=== PATIENT | female | born 1990 | race Caucasian/White ===

== ENCOUNTER 2019-09-19 11:35 | Outpatient (REF) | payer OTHER, SELFPAY ==
--- NOTE | 2019-09-19 11:00 | PAPFT_PTH ---
PATIENT: Daly Marie LOC: [facility] U#:[id number] AGE/SX: 28/F ROOM: RE09/19/[address]: OKSANA Jain : 1990 BED: DIS: 09/19/2019 SPEC #: [id number] RECD: 09/19/19 12:42 STATUS: YOSVANY REQ #: [id number] EWA: 09/19/19 11:[address]: Nhung Boone DEPT: [facility] Cytology RECD BY: Karina Boykin ENTERED: 09/19/19 12:43 SP TYPE: PAPFT KEVAN DR: Unknown,Unknown Tissues: 1 - CX/ENDOCX FOR PAP SMEARS Procedures: PAP THIN PREP/UVM Screening Comments: [id number]
== END 2019-09-19 11:55 ==
LOC: LBN 11:35
PROVIDERS: Visit Provider Nurse Practitioner Family
DX: Z12.4 Encounter for screening for malignant neoplasm of cervix (principal)
CPT/HCPCS: 88142

== ENCOUNTER 2020-11-28 21:02 | Outpatient (REF) | payer BC, SELFPAY ==
[2020-11-28 21:37] LABS: TSH (W/Ref FT4) 0.79 uIU/mL (0.36-3.74)
== END 2020-11-28 21:22 ==
LOC: NCHCN 21:02
PROVIDERS: Visit Provider Nurse Practitioner Family
DX: E66.3 Overweight (principal)
CPT/HCPCS: 84443

== ENCOUNTER 2021-12-12 15:43 | Outpatient (REF) | payer BC, SELFPAY ==
[2021-12-12 21:10] LABS: HCT 41.2 % (36.0-46.0); HGB 13.3 g/dL (11.2-15.7); MCH 28.4 pg (27.0-33.0); MCHC 32.3 % (32.0-36.0); Platelet Count 227 10^3/uL (130-400); RBC 4.68 10^6/uL (3.93-5.22); RDW 12.3 % (11.7-14.6); RDW-SD 39.9 fL; WBC 8.61 10^3/uL (4.4-10.8)
[2021-12-12 21:30] LABS: Anion Gap 9.2 mmol/L (3-11); BUN 16 mg/dL (7-18); CO2 27.8 mmol/L (21.0-32.0); CREATININE 0.7 mg/dL (0.55-1.02); Calcium 9.4 mg/dL (8.5-10.1); Chloride 104 mmol/L (98-107); Glucose 84 mg/dL (74-106); Potassium 3.9 mmol/L (3.5-5.1); Sodium 141 mmol/L (136-145); TSH (W/Ref FT4) 0.58 uIU/mL (0.36-3.74)
[2021-12-12 21:42] LABS: Iron 71 ug/dL (50-170); Total Iron Binding Capacity 318 ug/dL (250-450); Transferrin Sat 22 % (15-50)
== END 2021-12-12 15:44 | disposition home or self-care (01) ==
LOC: NCHCN 15:43
PROVIDERS: PCP Nurse Practitioner Family; Visit Provider Nurse Practitioner Family
DX: Z00.00 Encounter for general adult medical examination without abnormal findings (principal); R00.2 Palpitations
CPT/HCPCS: 80048; 85027; 83540; 83550; 84443

== ENCOUNTER 2021-12-15 13:39 | Outpatient (RCR) | payer BC, SELFPAY ==
--- NOTE | 2021-12-15 16:30 | HOLTER_ITS ---
APPROVED REPORT Conclusion This is a 48-hour Holter monitor, ordered for palpitations Predominant rhythm was sinus. Average heart rate was 79. Minimum was 55, maximum 151 There were no ventricular dysrhythmias A total of 6 isolated premature atrial contractions were recorded There was no atrial fibrillation, no high-grade AV block, no pauses greater than 3 seconds No patient symptoms were reported
== END 2022-01-05 23:59 | disposition home or self-care (01) ==
LOC: RT 13:39
PROVIDERS: PCP Nurse Practitioner Family; Visit Provider Nurse Practitioner Family
DX: R00.2 Palpitations (principal)
CPT/HCPCS: 93270; 93225; 93226

== ENCOUNTER 2022-01-22 17:49 | Outpatient (REF) | payer BC, SELFPAY ==
[2022-01-22 21:49] LABS: FREE T4 1.01 ng/dL (0.76-1.46)
[2022-01-23 17:53] LABS: T3,Free 4.1 pg/mL (2.8-5.3)
== END 2022-01-22 17:50 | disposition home or self-care (01) ==
LOC: NCHCN 17:49
PROVIDERS: PCP Nurse Practitioner Family; Visit Provider Nurse Practitioner Family
DX: F32.9 Major depressive disorder, single episode, unspecified (principal)
CPT/HCPCS: 84439; 84481

== ENCOUNTER 2023-01-30 13:26 | Outpatient (REF) | payer OTHER, SELFPAY ==
[2023-01-31 22:32] LABS: COVID-19 RT-PCR UVMMC Result Negative (Negative)
== END 2023-01-30 13:27 | disposition home or self-care (01) ==
LOC: LBN 13:26
PROVIDERS: PCP Nurse Practitioner Family; Visit Provider Physician Assistant Medical
DX: J02.9 Acute pharyngitis, unspecified (principal); Z20.822 Contact with and (suspected) exposure to COVID-19
CPT/HCPCS: U0003; 87070

== ENCOUNTER 2023-04-06 14:00 | Outpatient (REF) | payer OTHER, SELFPAY ==
--- NOTE | 2023-04-06 12:30 | PAPFT_PTH ---
PATIENT: Daly Marie LOC: [facility]#:[id number] AGE/SX: 32/F ROOM: RE04/06/[address]: Rebecca Negrete : 1990 BED: DIS: 04/06/2023 SPEC #: [id number] RECD: 04/06/23 17:11 STATUS: YOSVANY RECely #: [id number] EWA: 04/06/23 12:[address]: Rebecca Negrete DEPT: [facility] Cytology RECD BY: Karina Boykin Tissues: 1 - CX/ENDOCX FOR PAP SMEARS Procedures: PAP THIN PREP/UVM Screening HPV DNA PROBE Comments: [id number]
[2023-04-06 22:06] LABS: HCT 41.2 % (36.0-46.0); HGB 13.4 g/dL (11.2-15.7); MCH 28.7 pg (27.0-33.0); MCHC 32.5 % (32.0-36.0); MCV 88 fL (80-95); MPV 11.6 fL (8.0-11.0); Platelet Count 239 10^3/uL (130-400); RBC 4.67 10^6/uL (3.93-5.22); RDW 13.2 % (11.7-14.6); RDW-SD 42.9 fL; WBC 7.36 10^3/uL (4.4-10.8)
[2023-04-07 00:03] LABS: ALT 27 U/L (14-59); AST 24 U/L (15-37); Albumin 4.4 g/dL (3.4-5.0); Alkaline Phosphatase 118 U/L (46-116); BUN 13 mg/dL (7-18); Bilirubin, Total 0.2 mg/dL (0.2-1.0); CREATININE 0.9 mg/dL (0.55-1.02); Calcium 8.9 mg/dL (8.5-10.1); Calculated LDL 110 mg/dL (<100); Chloride 107 mmol/L (98-107); Cholesterol 188 mg/dL (<200); Estimated GFR 86.57 (mL/min/1.73m2); Glucose 90 mg/dL (74-106); HDL Cholesterol 72 mg/dL (40-60); Potassium 4.2 mmol/L (3.5-5.1); Sodium 144 mmol/L (136-145); Total Protein 7.8 g/dL (6.4-8.2); Triglyceride 31 mg/dL (<150)
== END 2023-04-06 14:01 | disposition home or self-care (01) ==
LOC: NCHCN 14:00
PROVIDERS: PCP Nurse Practitioner Family; Visit Provider Nurse Practitioner Family
DX: Z00.00 Encounter for general adult medical examination without abnormal findings (principal); Z13.0 Encounter for screening for diseases of the blood and blood-forming organs and certain disorders involving the immune mechanism; Z13.228 Encounter for screening for other metabolic disorders; Z13.220 Encounter for screening for lipoid disorders; Z12.4 Encounter for screening for malignant neoplasm of cervix; Z11.51 Encounter for screening for human papillomavirus (HPV)
CPT/HCPCS: 80053; 80061; 85027; 88142; 87624

== ENCOUNTER 2023-05-17 01:34 | Outpatient (CLI) | payer OTHER, SELFPAY ==
--- NOTE | 2023-05-17 | DI.US_ITS ---
Exam(s) US BREAST LT COMPLETE MG MAMMO DIAGNOSTIC BI EXAM: MAMMO DIAGNOSTIC BI AND COMPLETE LEFT BREAST ULTRASOUND CLINICAL HISTORY: LUMP LEFT BREAST N63.20. TECHNIQUE: Both CC and MLO mammographic images were obtained both breasts with 3D tomosynthesis tech nique and utilizing computer aided detection (CAD). Also performed additional spot compression views of the symptomatic left breast Also performed complete left breast ultrasound including all 4 quadrants as well as the retroareolar region and left axilla COMPARISON: None. This is a baseline diagnostic mammogram on this 32-year-old patient feels some pa in in her left breast for few months. She denies feeling an actual lump although does mention that d uring her recent examination or provider felt a possible asymmetric density in the lateral aspect of the left breast. FINDINGS: BILATERAL DIAGNOSTIC MAMMOGRAM: Fibroglandular tissue is moderately dense. No spiculated masses nor malignant-appearing microcalcification groups in either breast. No architec tural distortion or skin thickening-traction. Additional spot views of the area of symptoms in the lateral aspect of the left breast were performed and did not reveal additional findings. COMPLETE LEFT BREAST ULTRASOUND: There is a solitary finding which is a 3 millimeter benign microcyst at the 6 o'clock position, this not corresponding to area of symptoms. In the areas of clinical concern (upper outer quadrant on laterally) there is dense tissue noted in t he upper outer quadrant at the 2 o'clock position but no discernible cyst or nodule. Also no signifi cant focal findings at the 3-4 o'clock position which is area of maximum tenderness. Most importantly, there are no solid lesions in all 4 quadrants of the left breast. Scanning of the left axilla is negative for adenopathy. IMPRESSION: 1. No radiographic evidence of malignancy. 2. No solid left breast findings on ultrasound. Incidentally noted on ultrasound is a 3 mm benign mi crocyst at the 6 o'clock position (which does not correspond to her clinical findings). Appropriate follow-up is repeat breast imaging in 6 months if symptoms persist.. The patient was informed of the findings and follow-up recommendations by myself prior to leaving the department today. BI-RADS Category 3 - 6 month - Probably Benign Finding: Recommend follow-up mammography in 6 months Breast Density - Category C - Heterogeneously dense Breast density Category C or D implies that the patient has dense breast tissue. Dense breast tissue can make it harder to find cancer on a mammogram. Dense breast tissue is also associated with an incr eased risk of breast cancer. This information about the result of the mammogram report was provided to the patient to raise their awareness. Use this report when you speak with the patient about their risks for breast cancer, which includes their family history. At that time, you may recommend additional screening tests (Ultrasoun d or MRI) as these tests may add significant information. A negative radiographic report should not delay biopsy if a dominant or clinically suspicious mass is present. Up to ten percent of cancers are not identified on mammography. A negative report may reinforce clinical impression. Adenosis and dense breasts may obscure an underlying neoplasm. False positive reports average 6 to 10%. Patient will receive a letter notifying them of these results.
== END 2023-05-17 01:54 ==
LOC: DI 01:34
PROVIDERS: PCP Nurse Practitioner Family; Visit Provider Nurse Practitioner Family
DX: Z12.31 Encounter for screening mammogram for malignant neoplasm of breast (principal); R92.8 Other abnormal and inconclusive findings on diagnostic imaging of breast
CPT/HCPCS: 76642; 77062; 77066; G0279

== ENCOUNTER → 2023-11-15 03:04 | Outpatient (CLI) | payer OTHER, SELFPAY ==
--- NOTE | 2023-11-15 | DI.MAMMO_ITS ---
Exam(s) MG MAMMO DIAGNOSTIC UNI US BREAST LT LIMITED EXAM: MG MAMMO DIAGNOSTIC UNI and U/S breast LT limited CLINICAL HISTORY: ABNL MAMMO R92.8 6 MO FU LEFT. TECHNIQUE: Craniocaudal and mediolateral oblique Full Field Digital Mammography views of the left br east with Computer Aided Diagnosis followed by Tomosynthesis and left breast ultrasound. COMPARISON: Comparison is made with prior examinations. FINDINGS: Mammography/Tomosynthesis: Masses/Architectural Distortion: None seen. Microcalcifictions: No suspicious pleomorphic-type are seen. Skin Thickening/Nipple Retraction: None. Limited left breast US: Echotexture: Normal appearance of the glandular tissue. Shadowing: No suspicious foci. Cyst: This cyst seen at 6 o'clock is unchanged. Solid lesions: None seen. Ductal dilation: None. IMPRESSION: 1. No evidence of malignancy is noted. 2. Unless there is more urgent need, follow-up screening mammography is recommended, as per [employer] guidelines. 3. The findings were discussed with the patient on the date of the examination. BI-RADS Category 2 - Benign Findings Breast Density - Category C - Heterogeneously dense Breast density Category C or D implies that the patient has dense breast tissue. Dense breast tissue can make it harder to find cancer on a mammogram. Dense breast tissue is also associated with an incr eased risk of breast cancer. This information about the result of the mammogram report was provided to the patient to raise their awareness. Use this report when you speak with the patient about their risks for breast cancer, which includes their family history. At that time, you may recommend additional screening tests (Ultrasoun d or MRI) as these tests may add significant information. A negative radiographic report should not delay biopsy if a dominant or clinically suspicious mass is present. Up to ten percent of cancers are not identified on mammography. A negative report may reinforce clinical impression. Adenosis and dense breasts may obscure an underlying neoplasm. False positive reports average 6 to 10%. Patient will receive a letter notifying them of these results.
== END ==
PROVIDERS: PCP Nurse Practitioner Family; Visit Provider Nurse Practitioner Family
DX: Z12.31 Encounter for screening mammogram for malignant neoplasm of breast (principal); R92.8 Other abnormal and inconclusive findings on diagnostic imaging of breast
CPT/HCPCS: 76642; 77061; 77065; G0279

== ENCOUNTER 2024-04-07 12:49 | Outpatient (REF) | payer OTHER, SELFPAY ==
[2024-04-07 21:09] LABS: HCT 41.3 % (36.0-46.0); HGB 13.4 g/dL (11.2-15.7); MCH 28.1 pg (27.0-33.0); MCHC 32.4 % (32.0-36.0); MCV 87 fL (80-95); MPV 12.1 fL (8.0-11.0); Platelet Count 222 10^3/uL (130-400); RBC 4.77 10^6/uL (3.93-5.22); WBC 10.51 10^3/uL (4.4-10.8)
[2024-04-07 21:33] LABS: ALT 28 U/L (14-59); AST 14 U/L (15-37); Albumin 4.3 g/dL (3.4-5.0); Alkaline Phosphatase 91 U/L (46-116); Anion Gap 9.8 mmol/L (3-11); BUN 14 mg/dL (7-18); Bilirubin, Total 0.4 mg/dL (0.2-1.0); CO2 25.2 mmol/L (21.0-32.0); CREATININE 0.9 mg/dL (0.55-1.02); Calcium 8.9 mg/dL (8.5-10.1); Calculated LDL 94 mg/dL (<100); Chloride 108 mmol/L (98-107); Cholesterol 164 mg/dL (<200); Estimated GFR 86.03 (mL/min/1.73m2); Glucose 99 mg/dL (74-106); HDL Cholesterol 60 mg/dL (40-60); Potassium 4.5 mmol/L (3.5-5.1); Sodium 143 mmol/L (136-145); Total Protein 7.4 g/dL (6.4-8.2); Triglyceride 54 mg/dL (<150)
== END 2024-04-07 12:50 | disposition home or self-care (01) ==
LOC: NCHCN 12:49
PROVIDERS: PCP Nurse Practitioner Family; Visit Provider Nurse Practitioner Family
DX: Z00.00 Encounter for general adult medical examination without abnormal findings (principal); Z13.220 Encounter for screening for lipoid disorders; Z13.228 Encounter for screening for other metabolic disorders; Z13.0 Encounter for screening for diseases of the blood and blood-forming organs and certain disorders involving the immune mechanism
CPT/HCPCS: 80053; 80061; 85027

== ENCOUNTER 2024-07-12 02:45 | Outpatient (CLI) | payer OTHER, SELFPAY ==
[2024-07-17 13:34] LABS: Cucumber IgE 2.53 kU/L (<0.70); Raspberry, IgE 1.21 kU/L (<0.70)
[2024-07-17 13:57] LABS: Almond IgE 1.05 kU/L (<0.70); Brazil Nut IgE <0.10 kU/L (<0.70); Broccoli IgE 2.49 kU/L (<0.70); Carrot IgE 8.73 kU/L (<0.70); Cashew IgE 0.55 kU/L (<0.70); Celery IgE 7.76 kU/L (<0.70); Hazelnut-Food IgE 19.7 kU/L (<0.70); Peanut IgE 3.78 kU/L (<0.70); Pecan-Food IgE 0.16 kU/L (<0.70); Pistachio, IgE 0.86 kU/L (<0.70); Strawberry, IgE 0.86 kU/L (<0.70); Walnut-Food IgE 1.07 kU/L (<0.70); White Potato, IgE 1.81 kU/L (<0.70)
[2024-07-18 16:57] LABS: Watermelon IgG 4.6 mcg/mL
== END 2024-07-12 02:46 | disposition home or self-care (01) ==
LOC: LBO 02:45
PROVIDERS: PCP Nurse Practitioner Family; Visit Provider Physician Assistant
DX: R06.2 Wheezing (principal); T78.1XXA Other adverse food reactions, not elsewhere classified, initial encounter; Z91.09 Other allergy status, other than to drugs and biological substances; T78.3XXA Angioneurotic edema, initial encounter; Z91.018 Allergy to other foods
CPT/HCPCS: 36415; 86001; 86003

== ENCOUNTER 2024-08-17 03:25 | Outpatient (CLI) | payer OTHER, SELFPAY ==
--- NOTE | 2024-08-21 05:58 | W.NUTRFU ---
Date of service: 08/17/24 Time of Service: 13:30 Nutrition Note NOTE: Daly in for referred for nutrition visit today due to food allergies. Daly has had allergic symptoms to many foods in her past and recently did some allergy testing to see the severity of her allergies to foods. She received (And brought with her) a printout of the food allergens and the categories/levels of severity. Her weight has been stable for about 5 years. She engages in exercise and aims for ~100g protein per day. She is assessed at low nutrition risk, and she understands that avoidance is really the only treatment for food allergies other than working with immunology for possible options such as allergy shots, which she states she is going to be looking into. She came in today in hopes of being able to get some ideas on working around her allergens. I suggested she not eat foods listed as allergens and practice avoidance, but reassured her that she seems to be doing well with her diet and should continue following a por-active approach with reading labels and trying not to put herself in situations often where cross contamination can occur. She states she rarely eats out due to this concern. We reviewed multipl categories of healthy food choices and she is not a picky eater - open to new options. She will continue to try to have an allergen-free diet and will be sure to have her epi-pen with her at all times. Pt at low nutrition risk at this time. She took my contact info should she have any more questions or desire help with menu planning in a more detailed way. She feels confident that she is able to avoid allergens but relates that it is a little defeating when many of the foods she would enjoy. I sympathized with her and encouraged allegy support group online or other that can help her vent her frustration and talk to others who manage food allergies as well. Time Spent in Nutritional Counseling and Treatment: 25 minutes
== END 2024-08-17 03:26 | disposition home or self-care (01) ==
LOC: DS 03:25
PROVIDERS: PCP Nurse Practitioner Family; Visit Provider Dietitian, Registered
DX: Z91.09 Other allergy status, other than to drugs and biological substances (principal); Z71.3 Dietary counseling and surveillance
CPT/HCPCS: 00123; 97802

== ENCOUNTER 2025-01-19 16:06 | Outpatient (REF) | payer OTHER, SELFPAY ==
[2025-01-19 21:41] LABS: HCT 41.2 % (36.0-46.0); HGB 13.6 g/dL (11.2-15.7); MCH 28.2 pg (27.0-33.0); MCV 85 fL (80-95); Platelet Count 242 10^3/uL (130-400); RBC 4.83 10^6/uL (3.93-5.22); RDW 12.5 % (11.7-14.6); WBC 8.77 10^3/uL (4.4-10.8)
[2025-01-19 21:56] LABS: TSH (W/Ref FT4) 0.85 uIU/mL (0.36-3.74)
[2025-01-20 23:06] LABS: Estradiol 40 pg/mL (See Note)
[2025-01-22 11:21] LABS: Prolactin 4.3 ng/mL (See Note)
[2025-01-22 11:27] LABS: FSH 7.7 mIU/mL (See Note)
[2025-01-22 11:29] LABS: LH 5.5 mIU/mL (See Note)
== END 2025-01-19 16:07 | disposition home or self-care (01) ==
LOC: NCHCN 16:06
PROVIDERS: PCP Nurse Practitioner Family; Visit Provider Nurse Practitioner Family
DX: N92.6 Irregular menstruation, unspecified (principal)
CPT/HCPCS: 85027; 82670; 83001; 83002; 84146; 84443

== ENCOUNTER 2025-05-04 21:37 | Emergency (ER) | payer OTHER, SELFPAY ==
[2025-05-04] VITALS (20 sets, daily range): BP systolic 110–145; BP diastolic 70–83; PULSE 65–98; RESP 11–23; TEMP 36.3; O2SAT 93–100
--- NOTE | 2025-05-04 21:30 | RT.EKG_ITS ---
APPROVED REPORT Exam: Resting ECG Reason for Exam: abd pain Patient Location: E HR:55 bpm ECG Measurements Heart Rate 55 AXIS WV 144 P 7 QRSd 94 QRS 32 QT 398 T 35 QTc 382 Conclusion Sinus bradycardia 55 NORMAL AXIS NO STEMI
[2025-05-04 22:11] LABS: Abs Immature Grans 0.03 10^3/uL (0.0-0.06); Absolute Basophil Count 0.03 10^3/uL (0.0-0.2); Absolute Eosinophil Count 0.18 10^3/uL (0.0-0.7); Absolute Lymphocyte Count 4.19 10^3/uL (1.2-3.4); Absolute Monocyte Count 0.46 10^3/uL (0.1-0.8); Absolute Neutrophil Count 4.15 10^3/uL (1.2-6.7); Basophils % 0.3 %; HGB 13.7 g/dL (11.2-15.7); Immature Grans % 0.3 %; Lymphocytes % 46.3 %; MCH 28.4 pg (27.0-33.0); MCHC 33.4 % (32.0-36.0); MCV 85 fL (80-95); MPV 11.3 fL (8.0-11.0); Monocytes % 5.1 %; Platelet Count 193 10^3/uL (130-400); RBC 4.82 10^6/uL (3.93-5.22); RDW 12.5 % (11.7-14.6); RDW-SD 38.8 fL; WBC 9.04 10^3/uL (4.4-10.8)
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
[2025-05-04 22:36] LABS: ALT 35 U/L (14-59); AST 38 U/L (15-37); Albumin 4.4 g/dL (3.4-5.0); Alkaline Phosphatase 93 U/L (46-116); Anion Gap 12.9 mmol/L (3-11); BUN 14 mg/dL (7-18); Bilirubin, Total 0.3 mg/dL (0.2-1.0); CO2 24.1 mmol/L (21.0-32.0); Calcium 9.2 mg/dL (8.5-10.1); Chloride 104 mmol/L (98-107); Estimated GFR 75.34 (mL/min/1.73m2); Glucose 126 mg/dL (74-106); Lipase 35 U/L (<78); Magnesium 2.1 mg/dL (1.8-2.4); Potassium 3.5 mmol/L (3.5-5.1); Sodium 141 mmol/L (136-145); Total Protein 7.7 g/dL (6.4-8.2)
[2025-05-04 22:46] LABS: HCG Qual (Serum) Negative
[2025-05-04] MEDS: Omnipaque 350 MG/ML 100 ML BTL 75 ML IJ (23:22)
[2025-05-04] MEDS: Normal Saline - Diluent 50 ML VIAL IJ (23:23)
--- NOTE | 2025-05-04 23:23 | DI.CT_ITS ---
Exam(s) CT ABDOMEN PELVIS W EXAM: CT ABDOMEN PELVIS W CLINICAL HISTORY: upper abdominal epigastric pain. TECHNIQUE: Imaging Protocol: Axial computed tomography images with coronal and sagittal reformatted images were created and reviewed CONTRAST MATERIAL: Intravenous: Omnipaque 350 Contrast volume:75 ml Oral: no COMPARISON: No exams were available for comparison FINDINGS: ABDOMEN and PELVIS: Lung Bases: No acute findings. Liver: Normal density. No suspicious mass. Gallbladder and biliary tract: No radiodense calculus. No wall thickening or pericholecystic fluid. No biliary dilation. Pancreas: Normal density. No abnormal calcifications or inflammatory process. No evidence of mass. Spleen: Normal. Kidneys: Normal size, contour and axis. Tiny nonobstructing stone mid right kidney. No obstructive uropathy. No suspicious masses seen. Adrenal glands: No masses seen. Vasculature: Abdominal aorta non-dilated. Soft tissues: Unremarkable. Bladder: No gross wall thickening. No calculi.No focal mass. Bowel: No obstruction. No bowel wall thickening. Appendix normal. Portions of colon are nearly collapsed. Some submucosal fat deposition. Peritoneal cavity: Small amount of fluid in the cul-de-sac. No focal collection. No mesenteric inflammatory response. No free air. Bones: Unremarkable for age. Reproductive organs: Unremarkable. Lymph nodes: No pathologically enlarged lymph nodes. IMPRESSION:: No acute abnormality in the abdomen or pelvis. The preliminary [facility] report was reviewed. RADIATION DOSE DELIVERED: Total DLP DATA REPOSITORY: All CT scans at this facility are submitted to the National Radiology Data Registry (NRDR) Dose Index Registry (DIR) with the [employer] ([employer]). RADIATION OPTIMIZATION: All CT scans at this facility use at least one of these dose optimization techniques: automated exposure control; mA and/or kV adjustment per patient size (includes targeted exams where dose is matched to clinical indication); or iterative reconstruction.
[2025-05-04] MEDS: Ketorolac 15 MG/ML VIAL IVP (23:25)
[2025-05-04] MEDS: ACETAMINOPHEN 1,000 MG/100 ML BAG 400 MG IVPB (23:26)
[2025-05-04] MEDS: MYLANTA 30 ML, LIDOCAINE 2% VISCOUS UD 15 ML PO (23:28)
[2025-05-04 23:29] LABS: Troponin I < 4 ng/L (<or=51)
[2025-05-04 23:53] LABS: Troponin I 4 ng/L (<or=51)
--- NOTE | 2025-05-04 23:53 | DI.[facility]_ITS ---
Addendum created by Keshia Singh MD on 05/05/2025 12:45:04 AM EDT: The stated in report, the right nephrolithiasis is in the kidney. The stone is in a mid calyx. Initial report created on 05/04/2025 11:52:38 PM EDT: PROCEDURE INFORMATION: Exam: CT Abdomen And Pelvis With Contrast Exam date and time: 05/04/2025 11:03 PM Age: 34 years old Clinical indication: Abdominal pain; Upper abdominal and epigastric pain TECHNIQUE: Imaging protocol: Computed tomography of the abdomen and pelvis with contrast. Radiation optimization: All CT scans at this facility use at least one of these dose optimization techniques: automated exposure control; mA and/or kV adjustment per patient size (includes targeted exams where dose is matched to clinical indication); or iterative reconstruction. Contrast material: [id number]; Contrast volume: 75 ml; Contrast route: INTRAVENOUS (IV); COMPARISON: US PELVIS TRANSVAGINAL 08/13/2021 2:39 PM FINDINGS: Liver: No mass. Gallbladder and biliary ducts: No calcified stones. No gross ductal dilation. Pancreas: No ductal dilation. No mass . Spleen: No splenomegaly or suspicious lesions. Adrenal glands: No suspicious mass. Kidneys and ureters: Subcentimeter nonobstructive right nephrolithiasis. No renal masses or hydronephrosis bilaterally. Stomach and bowel: Normal CT appearance of the stomach. Normal CT appearance of the duodenum. Submucosal fat deposition in the colon, likely habitus and or diet related. No convincing colonic wall thickening allowing for submucosal fat deposition. No focal pathology in the small bowel. Appendix: No evidence of appendicitis. Intraperitoneal space: Small cul-de-sac free fluid within physiologic limits. Vasculature: No abdominal aortic aneurysm. Lymph nodes: No significantly enlarged lymph nodes. Urinary bladder: No gross wall thickening. Reproductive: Normal CT appearance of the uterus. Normal CT appearance of the right adnexa. Normal CT appearance of the left adnexa. Bones/joints: No acute fracture or subluxation. Soft tissues: No suspicious lesions. IMPRESSION: 1. No acute findings. 2. Subcentimeter nonobstructive right nephrolithiasis. 3. Incidental findings as described. Dictated and Authenticated by: Keshia Singh MD. Orderin Attila Mclean MD
[2025-05-05] VITALS: PULSE 86; RESP 17; O2SAT 98
[2025-05-05 00:10] VITALS: PULSE 79; PULSE 82; RESP 22; O2SAT 97
[2025-05-05 00:20] VITALS: PULSE 77; PULSE 78; RESP 19; O2SAT 98
[2025-05-05 00:45] LABS: Bilirubin Negative (Negative); Blood Negative (Negative); Clarity Clear (Clear); Glucose Negative (Negative); Ketones Negative (Negative); Leukocyte Esterase Negative (Negative); Nitrite Negative (Negative); Specific Gravity 1.015 (1.005-1.025); Urobilinogen 0.2 mg/dL (Up to 0.2); pH 6.5 (5-8)
[2025-05-05 01:11] VITALS: PULSE 77; RESP 19; O2SAT 98
== END 2025-05-05 01:11 | disposition home or self-care (01) ==
PROVIDERS: Emergency Medicine; Emergency Provider Student in an Organized Health Care Education/Training Program; PCP Nurse Practitioner Family
DX: N13.2 Hydronephrosis with renal and ureteral calculous obstruction (principal); R00.1 Bradycardia, unspecified; Z79.899 Other long term (current) drug therapy
CPT/HCPCS: 36415; 80053; 83690; 93005; 96365; 96375; 99285; 74177; 81003; 83735; 84484; 84703; 85025; 93010; J0131; J1885; J3490

== ENCOUNTER 2025-05-19 22:36 | Emergency (ER) | payer OTHER, SELFPAY ==
[2025-05-19 22:40] VITALS: BP 161/68; PULSE 79; RESP 18; O2SAT 100
--- NOTE | 2025-05-19 22:45 | RT.EKG_ITS ---
APPROVED REPORT Exam: Resting ECG Reason for Exam: upper abdominal pain Patient Location: E HR:73 bpm ECG Measurements Heart Rate 73 AXIS OK 166 P 22 QRSd 96 QRS 20 QT 372 T 16 QTc 410 Conclusion Sinus rhythm...normal P axis, V-rate 60- 99 Low voltage, precordial leads...precordial leads <1.0mV appropriate intervals no ST segment or T wave abnormalities to suggest occlusive [place]
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
[2025-05-19 23:11] LABS: Glucose Negative (Negative)
[2025-05-19] MEDS: MYLANTA 30 ML, LIDOCAINE 2% VISCOUS UD 15 ML PO (23:25)
--- NOTE | 2025-05-19 23:25 | ED.PROG_ITS ---
Date of service: 05/19/25 Time of Service: 23:25 Medical Decision Making This patient was signed out to me. Please see previous notes for H&P and initial eval. In brief, 34yo F presenting with upper abdominal pain, similar episode recently. Suspicion for biliary colic. Given mylanta, droperidol, dilaudid. Pending labs and reassessment. If laboratory workup including troponins is reassuring and symptoms improve, plan for discharge home with order for outpatient ultrasound. Labs reviewed as below, CBC reassuring with no leukocytosis or anemia, CMP with newly elevated LFTs AST 143 ALT 102 ALP 126, Mg normal, lipase not suggestive of pancreatitis, troponin negative and repeat unchanged (would not further pursue ACS). UA not infected and no hematuria to suggest pyelonephritits. On reassessment patient reports pain improved, now 5/10. It has been constant for the last 3 hours. RUQ TTP, negative Muprhy's. LFT elevation mild but definitely new and given constant pain now >4 hours more concerning for acute cholecystitis and warrants imaging, ideally RUQ ultrasound. Did have CT two weeks ago with no significant findings; given young age hesitant to repeat again today given lack of utility for definitive diagnosis. No US available at [facility] until Wednesday. Reached out to [facility] transfer center; declined due to ED capacity. Reached out to [facility] transfer center and patient accepted ED to ED under Dr. Hwang. Pt refused ambulance transport, will go by private vehicle. Medical Records Medical records reviewed: Yes I reviewed the patient's medical records. Lab Data Lab results reviewed: Yes I reviewed the patient's lab results. Labs: Laboratory Tests Range/Units 05/19/25 05/19/25 23:04 23:30 WBC (4.4-10.8) 10^3/uL 9.94 RBC (3.93-5.22) 10^6/uL 4.29 Hgb (11.2-15.7) g/dL 12.3 Hct (36.0-46.0) % 36.5 MCV (80-95) fL 85 MCH (27.0-33.0) pg 28.7 MCHC (32.0-36.0) % 33.7 RDW (11.7-14.6) % 12.6 Plt Count (130-400) 10^3/uL 180 MPV (8.0-11.0) fL 11.7 H Immature Gran % % 0.3 Neutrophils % % 82.2 Lymphocytes % % 10.4 Monocytes % % 6.1 Eosinophils % % 0.8 Basophils % % 0.2 Nucleated RBC % (0.0-0.3) % 0.0 Absolute Neutrophils (1.2-6.7) 10^3/uL 8.17 H Absolute Lymphocytes (1.2-3.4) 10^3/uL 1.03 L Absolute Monocytes (0.1-0.8) 10^3/uL 0.61 Absolute Eosinophils (0.0-0.7) 10^3/uL 0.08 Absolute Basophils (0.0-0.2) 10^3/uL 0.02 Sodium (136-145) mmol/L 139 Potassium (3.5-5.1) mmol/L 3.7 Chloride (98-107) mmol/L 103 Carbon Dioxide (21.0-32.0) mmol/L 25.5 Anion Gap (3-11) mmol/L 10.5 BUN (7-18) mg/dL 16 Creatinine (0.55-1.02) mg/dL 0.8 Est GFR (CKD-EPI 2020) (mL/min/1.73m2) 98.48 Glucose (74-106) mg/dL 106 Calcium (8.5-10.1) mg/dL 8.6 Magnesium (1.8-2.4) mg/dL 2.0 Total Bilirubin (0.2-1.0) mg/dL 0.4 Conjugated Bilirubin (0.0-0.2) mg/dL 0.2 AST (15-37) U/L 143 H ALT (14-59) U/L 102 H Alkaline Phosphatase (46-116) U/L 126 H Troponin I (<or=51) ng/L < 4 Total Protein (6.4-8.2) g/dL 7.1 Albumin (3.4-5.0) g/dL 4.0 Lipase (<78) U/L 37 Urine Color (Yellow) Yellow Urine Clarity (Clear) Clear Urine pH (5-8) 6.0 Ur Specific [place] (1.005-1.025) >= 1.030 H Urine Protein (Neg-Trace) mg/dL Negative Urine Ketones (Negative) mg/dL Trace H Urine Blood (Negative) Negative Urine Nitrite (Negative) Negative Urine Bilirubin (Negative) Small H Urine Urobilinogen (Up to 0.2) mg/dL 0.2 Ur Leukocyte Esterase (Negative) Negative Urine Glucose (Negative) mg/dL Negative Discharge Plan Disposition Patient Disposition: Other Disposition Not Listed Other Facility: [facility] ED to ED Condition: Good Discharge Details Clinical Impression: Abdominal pain Primary Care Provider: Rebecca Negrete ED Provider: Caridad Aiken Home Meds and New Rx's Prescriptions: No Action fexofenadine [Silvia Allergy] 180 mg tablet 180 mg PO DAILY PRN epinephrine [EpiPen 2-Gino] 0.3 mg/0.3 mL auto-injector 0.3 mg IM ONCE Qty: 2 0RF Rx Instructions: as a single dose; may repeat once 5 minutes Zepbound 2.5 mg/0.5 mL pen injector 2.5 mg subcut QWEEK Rx Instructions: for 4 weeks Discharge Instructions Additional Instructions: You are being transferred to the ED at [facility] and you have chosen to by driven by family. Go directly to the emergency department at [facility]. [address], [place] [address]
[2025-05-19 23:42] LABS: Abs Immature Grans 0.03 10^3/uL (0.0-0.06); HCT 36.5 % (36.0-46.0); HGB 12.3 g/dL (11.2-15.7); Immature Grans % 0.3 %; MCH 28.7 pg (27.0-33.0); MCHC 33.7 % (32.0-36.0); MCV 85 fL (80-95); MPV 11.7 fL (8.0-11.0); Platelet Count 180 10^3/uL (130-400); RBC 4.29 10^6/uL (3.93-5.22); RDW 12.6 % (11.7-14.6); RDW-SD 38.6 fL; WBC 9.94 10^3/uL (4.4-10.8)
[2025-05-19] MEDS: Droperidol 5 MG/2 ML VIAL 2.5 MG IVP (23:56)
[2025-05-20 00:01] LABS: ALT 102 U/L (14-59); AST 143 U/L (15-37); Albumin 4.0 g/dL (3.4-5.0); Alkaline Phosphatase 126 U/L (46-116); Anion Gap 10.5 mmol/L (3-11); BUN 16 mg/dL (7-18); Bilirubin, Direct 0.2 mg/dL (0.0-0.2); Bilirubin, Total 0.4 mg/dL (0.2-1.0); CO2 25.5 mmol/L (21.0-32.0); Calcium 8.6 mg/dL (8.5-10.1); Chloride 103 mmol/L (98-107); Estimated GFR 98.48 (mL/min/1.73m2); Glucose 106 mg/dL (74-106); Lipase 37 U/L (<78); Magnesium 2.0 mg/dL (1.8-2.4); Potassium 3.7 mmol/L (3.5-5.1); Sodium 139 mmol/L (136-145); Total Protein 7.1 g/dL (6.4-8.2)
[2025-05-20 00:02] LABS: Troponin I < 4 ng/L (<or=51)
[2025-05-20 00:36] VITALS: BP 119/59; PULSE 65; RESP 18; O2SAT 97
[2025-05-20 01:08] VITALS: BP 105/49; PULSE 86; RESP 18; TEMP 36.7; O2SAT 98
[2025-05-20 01:16] LABS: Troponin I < 4 ng/L (<or=51)
== END 2025-05-20 01:29 | disposition short-term general hospital (02) ==
PROVIDERS: Emergency Medicine; Emergency Provider Student in an Organized Health Care Education/Training Program; PCP Nurse Practitioner Family
DX: R10.10 Upper abdominal pain, unspecified (principal); R11.2 Nausea with vomiting, unspecified; R74.01 Elevation of levels of liver transaminase levels; Z79.899 Other long term (current) drug therapy
CPT/HCPCS: 00123; 80053; 81025; 83690; 93005; 96374; 99284; 81003; 82248; 83735; 84484; 85025; 93010; J1790

== ENCOUNTER 2025-05-23 18:57 | Outpatient (REF) | payer OTHER, SELFPAY ==
[2025-05-23 22:28] LABS: ALT 296 U/L (14-59); AST 137 U/L (15-37); Albumin 4.3 g/dL (3.4-5.0); Alkaline Phosphatase 135 U/L (46-116); Anion Gap 12.5 mmol/L (3-11); BUN 13 mg/dL (7-18); Bilirubin, Total 0.4 mg/dL (0.2-1.0); CO2 24.5 mmol/L (21.0-32.0); Calcium 9.0 mg/dL (8.5-10.1); Chloride 103 mmol/L (98-107); Estimated GFR 119.97 (mL/min/1.73m2); Glucose 97 mg/dL (74-106); Potassium 4.2 mmol/L (3.5-5.1); Sodium 140 mmol/L (136-145); Total Protein 7.2 g/dL (6.4-8.2)
== END 2025-05-23 18:58 | disposition home or self-care (01) ==
LOC: NCHCN 18:57
PROVIDERS: PCP Nurse Practitioner Family; Visit Provider Nurse Practitioner Family
DX: R79.89 Other specified abnormal findings of blood chemistry (principal)
CPT/HCPCS: 80053

== ENCOUNTER 2025-05-24 12:06 | Outpatient (REF) | payer OTHER, SELFPAY ==
[2025-05-24 16:58] LABS: ALT 230 U/L (14-59); AST 66 U/L (15-37); Albumin 4.4 g/dL (3.4-5.0); Alkaline Phosphatase 125 U/L (46-116); Anion Gap 10.2 mmol/L (3-11); BUN 12 mg/dL (7-18); Bilirubin, Total 0.5 mg/dL (0.2-1.0); CO2 24.8 mmol/L (21.0-32.0); Calcium 9.1 mg/dL (8.5-10.1); Chloride 104 mmol/L (98-107); Estimated GFR 115.59 (mL/min/1.73m2); Glucose 107 mg/dL (74-106); Potassium 4.1 mmol/L (3.5-5.1); Sodium 139 mmol/L (136-145); Total Protein 7.3 g/dL (6.4-8.2)
[2025-05-25 11:40] LABS: Hepatitis A Antibody IgM Negative (Negative); Hepatitis C Ab w Rflx HCV PCR Negative (Negative)
== END 2025-05-24 12:07 | disposition home or self-care (01) ==
LOC: NCHCN 12:06
PROVIDERS: PCP Nurse Practitioner Family; Visit Provider Nurse Practitioner Family
DX: R10.11 Right upper quadrant pain (principal)
CPT/HCPCS: 80053; 86704; 86709; 86803; 87340

== ENCOUNTER 2025-06-26 14:58 | Outpatient (CLI) | payer OTHER, SELFPAY ==
[2025-06-26 16:22] LABS: ALT 35 U/L (14-59); AST 15 U/L (15-37); Albumin 4.2 g/dL (3.4-5.0); Alkaline Phosphatase 90 U/L (46-116); Anion Gap 10.2 mmol/L (3-11); BUN 13 mg/dL (7-18); Bilirubin, Total 0.4 mg/dL (0.2-1.0); CO2 28.8 mmol/L (21.0-32.0); Calcium 9.1 mg/dL (8.5-10.1); Chloride 103 mmol/L (98-107); Estimated GFR 98.48 (mL/min/1.73m2); Glucose 98 mg/dL (74-106); Potassium 3.9 mmol/L (3.5-5.1); Sodium 142 mmol/L (136-145); TSH (W/Ref FT4) 0.92 uIU/mL (0.36-3.74); Total Protein 7.5 g/dL (6.4-8.2)
== END 2025-06-26 14:59 | disposition home or self-care (01) ==
LOC: LBO 14:58
PROVIDERS: PCP Nurse Practitioner Family; Visit Provider Nurse Practitioner Family
DX: K82.8 Other specified diseases of gallbladder (principal)
CPT/HCPCS: 36415; 80053; 82784; 84443

== ENCOUNTER 2025-07-02 16:21 | Outpatient (REF) | payer OTHER, SELFPAY ==
[2025-07-02 16:52] LABS: EPI 027-NAP1-B1 PRESUMPTIVE NEGATIVE
[2025-07-03 11:45] LABS: Campylobacter PCR Negative (Negative); Shiga Toxin PCR Negative (Negative); Shigella/Enteroinvasive Ecoli Negative (Negative)
[2025-07-03 13:33] LABS: Helicobacter pylori Ag, Feces Negative (Negative)
[2025-07-06 15:51] LABS: Pancreatic Elastase, F 405 mcg/g
== END 2025-07-02 16:22 | disposition home or self-care (01) ==
LOC: LBN 16:21
PROVIDERS: PCP Nurse Practitioner Family; Visit Provider Nurse Practitioner Family
DX: K82.8 Other specified diseases of gallbladder (principal)
CPT/HCPCS: 87015; 87269; 87272; 87338; 87505; 82656; 83993